=== PATIENT | female | born 1985 | race Caucasian/White ===

== ENCOUNTER 2017-06-19 20:59 | Emergency (ER) | payer BC, MEDICAID ==
[~2017-06-19] VITALS: Ht 172.7 cm; Wt 68.0 kg
--- NOTE | 2017-06-19 21:05 | NUR ---
PATIENT AMBULATED TO ER CHAIR E
[2017-06-19 21:07] VITALS: BP 126/68
--- NOTE | 2017-06-19 21:10 | NUR ---
PATIENT IS A 32 Y/O FEMALE WHO PRESENTS TO THE ED C/O RIGHT EAR PAIN. PT STATES, "MY EAR HAS BEEN GETTING WORSE." PT REPORTS 7/10 ACHING RIGHT EAR PAIN THAT DOES NOT RADIATE. PT DENIES CP, SOB, N/V/D. PT AAOX4, RR EVEN/UNLABORED. PT REPOSITIONED FOR COMFORT, BED IN LOWEST POSITION. ER MD MCKINNEY SECIST NOTIFIED. WILL CONTINUE TO MONITOR.
[2017-06-19 22:05] VITALS: BP 119/73
--- NOTE | 2017-06-19 22:05 | NUR ---
Patient discharged with v/s stable. Written and verbal after care instructions given and explained. Patient verbalized understanding. Ambulatory with steady gait. All questions addressed prior to discharge. Advised to follow up with PMD.
== END 2017-06-19 22:05 | disposition home or self-care (01) ==
LOC: MED 20:59
DX: J06.9 Acute upper respiratory infection, unspecified (principal); H92.01 Otalgia, right ear
CPT/HCPCS: 99282